=== PATIENT | male | born 1945 | race Caucasian/White ===

== ENCOUNTER 2023-01-15 13:46 | Emergency (ER) | payer OTHER ==
[~2023-01-15] VITALS: Ht 157.5 cm; Wt 81.6 kg
[2023-01-15 14:00] VITALS: BP_SYST 97; PULSE 103; RESP 18; TEMP 97.7; O2SAT 97
[2023-01-15] MEDS ORDERED: NIRM1TAB PO (14:23)
== END 2023-01-15 16:10 | disposition home or self-care (01) ==
LOC: SED 13:46
DX: Z00.00 Encounter for general adult medical examination without abnormal findings (principal); U07.1 COVID-19; Z88.0 Allergy status to penicillin; Z79.899 Other long term (current) drug therapy
CPT/HCPCS: 99283